=== PATIENT | female | born 1975 | race Caucasian/White ===

== ENCOUNTER 2019-04-24 16:27 | Emergency (ER) | payer OTHER ==
[~2019-04-24] VITALS: Ht 160 cm; Wt 77.7 kg
[2019-04-24 16:45] VITALS: BP 162/93
[2019-04-24] MEDS ORDERED: CLON0.1T42 PO (17:04)
--- NOTE | 2019-04-24 18:00 | NUR ---
43 y/o F presents to ER for high blood pressure. Pt went a clinic and was referred to come to ER. Pt denies pain, dizziness, blurred vision. Pt feels pressure in her head but denies any pain, pain level 0/10. Current BP 187/95. A&O x4. Allergies: NKA Med hx: none
[2019-04-24] MEDS ORDERED: hydrALAZINE 20 MG/ML VIAL IVP ONE (18:20)
[2019-04-24] MEDS ORDERED: ENALAPRILAT 2.5 MG/2 ML VIAL IVP ONE (18:20)
--- NOTE | 2019-04-24 19:08 | NUR ---
Transfer of care and report given to DENIZ Bautista
[2019-04-24 20:30] VITALS: BP 128/73
--- NOTE | 2019-04-24 20:30 | NUR ---
PT D/C BY DR ADDISON. EDUCATED PT REGARDING MEDICATION AND D/C INSTRUCTIONS. PT VERBALIZED UNDERSTANDING. TOLD PT TO FOLLOW UP WITH PCP AND WHEN TO RETURN TO ED. PT STABLE CONDITION. ALL QUESTIONS ANSWERED.
== END 2019-04-24 20:30 | disposition home or self-care (01) ==
LOC: MED 16:27
DX: I10 Essential (primary) hypertension (principal); Z98.890 Other specified postprocedural states; Z79.899 Other long term (current) drug therapy
CPT/HCPCS: 96374; 96375; 99283; J0360; J3490